=== PATIENT | female | born 1970 | race African-American/Black ===

== ENCOUNTER 2016-10-01 17:14 | Inpatient (IN) | payer OTHER ==
[2016-10-01 18:43] VITALS: BMI 30.2
--- NOTE | 2016-10-01 20:39 | HP ---
Admission ROS [facility] - [facility] Chief Complaint: I WANT TO GO TO REHAB Allergies/Adverse Reactions: Allergies Allergy/AdvReac Type Severity Reaction Status Date / Time No Known Allergies Allergy Verified 10/01/16 21:01 History of Present Illness: 46 YEARS OLD FEMALE WITH LONG HISTORY OF ALCOHOL COCAINE NICOTINE DEPENDENCE HAS HIV DENIES MENTAL ILLNESS IS ADMITTED TO REHAB Exam Limitations: No Limitations - Ebola screening Have you traveled outside of the country in the last 21 days: No Have you had contact with anyone from an Ebola affected area: No Have you been sick,other than usual withdrawal symptoms: No Do you have a fever: No - Review of Systems Constitutional: Weight Stable EENT: reports: Throat Pain Respiratory: reports: Cough Cardiac: reports: No Symptoms Reported GI: reports: No Symptoms Reported : reports: No Symptoms Reported Musculoskeletal: reports: No Symptoms Reported Integumentary: reports: Rash (NECK) Neuro: reports: No Symptoms reported Endocrine: reports: No Symptoms Reported Hematology: reports: No Symptoms Reported Psychiatric: reports: Judgement Intact, Mood/Affect Appropiate, Orientated x3 Other Systems: Reviewed and Negative Patient History - Patient Medical History Hx Anemia: No Hx Asthma: No Hx Chronic Obstructive Pulmonary Disease (COPD): No Hx Cancer: No Hx Cardiac Disorders: No Hx Congestive Heart Failure: No Hx Hypertension: No Hx Hypercholesterolemia: No Hx Pacemaker: No HX Cerebrovascular Accident: No Hx Seizures: No Hx Dementia: No Hx Diabetes: No Hx Gastrointestinal Disorders: No Hx Liver Disease: No Hx Genitourinary Disorders: No Hx Sexually Transmitted Disorders: No Hx Renal Disease (ESRD): No Hx Thyroid Disease: No Hx Human Immunodeficiency Virus (HIV): Yes Hx Hepatitis C: No Hx Depression: No Hx Suicide Attempt: No Hx Bipolar Disorder: No Hx Schizophrenia: No - Patient Surgical History Past Surgical History: No - PPD History Previous Implant?: Yes Documented Results: Negative w/o proof Implanted On Prior [facility] Admission?: No PPD to be Administered?: Yes - Reproductive History Patient is a Female of Child Bearing Age (11 -55 yrs old): No Last Menstrual Period: 10/01/16 Patient : No - Smoking Cessation Smoking history: Current every day smoker Have you smoked in the past 12 months: Yes Aproximately how many cigarettes per day: 10 Cigars Per Day: 0 Hx Chewing Tobacco Use: No Initiated information on smoking cessation: Yes 'Breaking Loose' booklet given: 10/01/16 - Substance & Tx. History Hx Alcohol Use: Yes Hx Substance Use: Yes Substance Use Type: Alcohol, Cocaine Hx Substance Use Treatment: Yes (2014 ) - Substances Abused Alcohol Route: Oral Frequency: 3-6 times per week Amount used: JOHNY WILLOUGHBY Age of first use: 12 Date of Last Use: 10/01/16 Cocaine Route: Smoking Frequency: 1-2 times per week Amount used: 200$ Age of first use: 33 Date of Last Use: 09/28/16 Family Disease History - Family Disease History Family Disease History: CA: Mother (), Other: Mother Admission Physical Exam [facility] - Vital Signs Vital Signs: Vital Signs - 24 hr 10/01/16 18:40 Temperature 97.1 F L Pulse Rate 99 H Respiratory 20 Rate Blood Pressure 134/89 - Physical General Appearance: Yes: No Apparent Distress, Appropriately Dressed, Obese HEENTM: Yes: Hearing grossly Normal, Normal ENT Inspection, Normocephalic, Normal Voice, Muffled/Hoarse Voice, Pharyngeal Erythemia Respiratory: Yes: Chest Non-Tender, Lungs Clear, Normal Breath Sounds, No Respiratory Distress, No Accessory Muscle Use Neck: Yes: Supple, Trachea in good position Breast: Yes: Breasts Symetrical Cardiology: Yes: Regular Rhythm, S1, S2, Tachycardia Abdominal: Yes: Normal Bowel Sounds, Non Tender, Soft Genitourinary: Yes: Within Normal Limits Back: Yes: Normal Inspection Musculoskeletal: Yes: full range of Motion, Gait Steady Extremities: Yes: Normal Inspection, Normal Range of Motion, Non-Tender Neurological: Yes: Fully Oriented, Alert, Motor Strength 5/5, Normal Mood/Affect , Normal Response Integumentary: Yes: Normal Color, Dry, Warm Lymphatic: Yes: Within Normal Limits - Diagnostic (1) Alcohol dependence with uncomplicated withdrawal Current Visit: Yes Status: Acute (2) Cocaine dependence, uncomplicated Current Visit: Yes Status: Chronic (3) Nicotine dependence Current Visit: Yes Status: Acute Qualifiers: Nicotine product type: cigarettes Substance use status: in withdrawal Qualified Code(s): F17.213 - Nicotine dependence, cigarettes, with withdrawal (4) HIV (human immunodeficiency virus infection) Current Visit: Yes Status: Chronic (5) Acneiform rash Current Visit: Yes Status: Acute (6) Sore throat Current Visit: Yes Status: Acute (7) Dry skin dermatitis Current Visit: Yes Status: Chronic Cleared for Admission [facility] - Detox or Rehab [facility] Level of Care: Observation Bed Detox Regimen/Protocol: Not Applicable Claeared for Rehab Admission: Yes [facility] Breath Alcohol Content Breath Alcohol Content: 0.059 Urine Pregancy Test - Result Urine Test Results: Negative- NO Line Present Urine Drug Screen - Results Drug Screen Negative: No Urine Drug Screen Results: SARINA-Cocaine
[2016-10-01] MEDS ORDERED: MAGNESIUM CITRATE 300 ML BOTTLE PO PRN (20:44)
[2016-10-01] MEDS ORDERED: MENTHOL/PHENOL 1 EACH UD MM PRN (20:44)
[2016-10-01] MEDS ORDERED: hydrOXYzine PAMOATE 50 MG CAPSULE (FP) PO PRN (20:44)
[2016-10-01] MEDS ORDERED: MAG HYDROX/AL HYDROX/SIMETH 30 ML UNIT-DOSE CUP PO PRN (20:44)
[2016-10-01] MEDS ORDERED: guaiFENesin/D-METHORPHAN HB 10 ML UNIT-DOSE CUPS PO PRN (20:44)
[2016-10-01] MEDS ORDERED: NICOTINE POLACRILEX 2 MG GUM BC PRN (20:44)
[2016-10-01] MEDS ORDERED: LOPERAMIDE HCL 2 MG CAPSULE PO PRN (20:44)
[2016-10-01] MEDS ORDERED: ACETAMINOPHEN 325 MG TABLET (FP) PO PRN (20:44)
[2016-10-01] MEDS ORDERED: MAGNESIUM HYDROX 2400MG/30ML ORAL SUSPENSION 30 ML CUP PO PRN (20:44)
[2016-10-01] MEDS ORDERED: P-EPHED 60MG/TRIPROLIDI 2.5MG TABLET PO PRN (20:44)
[2016-10-01] MEDS ORDERED: COLLOIDAL OATMEAL 1 BAR EACH TP PRN (20:46)
[2016-10-01] MEDS ORDERED: TUBERCULIN PPD 5 TU/0.1ML VIAL ID ONE (21:48)
[2016-10-01] MEDS: THIAMINE HCL 100 MG TABLET (FP) PO SCH (22:01)
[2016-10-01] MEDS: AMOXICILLIN 500 MG CAPSULE (FP) PO SCH (22:01)
[2016-10-01] MEDS: HYDROCORTISONE 1% TOPICAL CREAM 30 GM TUBE TP SCH (22:03)
[2016-10-01 22:15] LABS: URINE APPEARANCE CLOUDY; URINE BILIRUBIN NEGATIVE (NEGATIVE); URINE BLOOD 3+ (NEGATIVE); URINE COLOR AMBER; URINE GLUCOSE (UA) NEGATIVE (NEGATIVE); URINE KETONE NEGATIVE (NEGATIVE); URINE NITRITE NEGATIVE (NEGATIVE); URINE UROBILINOGEN 4.0 E.U/dl mg/dL (0.2-1.0)
[2016-10-01 22:42] LABS: URINE LEUK ESTERASE 2+ (NEGATIVE); URINE PROTEIN 2+ (NEGATIVE)
[2016-10-01 22:43] LABS: URINE MUCUS MANY; URINE RBC 489 /hpf (0-3); URINE WBC 169 /hpf (3-5)
[2016-10-02] MEDS: AMOXICILLIN 500 MG CAPSULE (FP) PO SCH ×3 (06:19→21:10)
[2016-10-02 10:07] LABS: MCH 27.6 pg (25.7-33.7); MCHC 31.9 g/dl (32.0-36.0); MEAN CELL VOLUME 86.5 fl (80-96); MEAN PLT VOLUME 8.7 fl (7.5-11.1); PLATELET COUNT 193 K/MM3 (134-434); RDW 14.7 % (11.6-15.6); WHITE BLOOD COUNT 4.8 K/mm3 (4.0-10.0)
[2016-10-02] MEDS: NICOTINE 14 MG/24 HOURS TOPICAL PATCH TD SCH (10:16)
[2016-10-02] MEDS: HYDROCORTISONE 1% TOPICAL CREAM 30 GM TUBE TP SCH ×4 (10:16→21:11)
[2016-10-02] MEDS: PRENATAL VITAMINS W/ FOLIC ACID TABLET (FP) PO SCH (10:16)
[2016-10-02 10:50] LABS: ALBUMIN 3.2 g/dl (3.4-5.0); ALK PHOS 97 U/L (45-117); ANION GAP 7 (8-16); BILIRUBIN,TOTAL 0.8 mg/dL (0.2-1.0); CO2 28 mmol/L (21-32); CREATININE 0.6 mg/dL (0.55-1.02); GLUCOSE,RANDOM 109 mg/dL (74-106); SGOT/AST 26 U/L (15-37); SGPT/ALT 38 U/L (12-78); TOT PROT 6.9 g/dl (6.4-8.2)
[2016-10-02] MEDS: THIAMINE HCL 100 MG TABLET (FP) PO SCH (21:09)
[2016-10-03] MEDS: AMOXICILLIN 500 MG CAPSULE (FP) PO SCH ×3 (07:27→21:46)
[2016-10-03] MEDS ORDERED: PT OWN MED DRAWER 7, Y5N ONE ×3 (08:49→20:26)
[2016-10-03] MEDS: PRENATAL VITAMINS W/ FOLIC ACID TABLET (FP) PO SCH (10:00)
[2016-10-03] MEDS: HYDROCORTISONE 1% TOPICAL CREAM 30 GM TUBE TP SCH ×4 (10:01→21:55)
[2016-10-03] MEDS: NICOTINE 14 MG/24 HOURS TOPICAL PATCH TD SCH (10:01)
--- NOTE | 2016-10-03 10:24 | HP ---
Psychiatrist Admission - Data Date of interview: 10/03/16 Admission source: [facility] Identifying data: This is the first admission to [address] [place] [address] for this 46 years old AA single mother of 3 grown children, resides with family,supported by [place]. Medical History: Significant for HIV+,Dry skin dermatitis. Psychiatric History: Patient reports depressed mood,anxiety once in a while.No history of psychiatric treatment except Seroquel 50 mg po hs for sleep while in rehabilitation treatment,no suicidal attempts,no psychiatric admissions. Physical/Sexual Abuse/Trauma History: denies Vital Signs: Vital Signs - 24 hr 10/03/16 10/03/16 10/03/16 00:30 03:30 07:28 Temperature 98.2 F Pulse Rate 67 Respiratory 18 18 18 Rate Blood Pressure 145/84 Allergies/Adverse Reactions: Allergies Allergy/AdvReac Type Severity Reaction Status Date / Time No Known Allergies Allergy Verified 10/01/16 21:01 Date of last physical exam: 10/01/16 Concur with the findings of this exam: Yes - Substance Abuse/Tx History Hx Alcohol Use: Yes (reports drinking since 12 yo,I pint of vodka 3-6 times a week) Hx Substance Use: Yes (cocaine since 33 yo,$200 1-2 times a week) Substance Use Type: Alcohol, Cocaine Hx Substance Use Treatment: Yes (longest abstinence 1,5 years) - Admission Criteria Previous failed treatment: Yes Poor recovery environment: Yes Comorbidities: Yes Lacks judgement: Yes Mental Status Exam - Mental Status Exam Alert and Oriented to: Time, Place, Person Cognitive Function: Grossly Intact Patient Appearance: Well Groomed Mood: Sad Affect: Mood Congruent, Labile Patient Behavior: Cooperative Speech Pattern: Clear Voice Loudness: Normal Thought Process: Goal Oriented Thought Disorder: Not Present Hallucinations: Denies Suicidal Ideation: Denies Homicidal Ideation: Denies Insight/Judgement: Fair Sleep: Fair Appetite: Good Muscle strength/Tone: Normal Gait/Station: Normal Psychiatric Findings - Problem List ([place] 1, 2,3) (1) Nicotine dependence Current Visit: Yes Status: Chronic Qualifiers: Nicotine product type: cigarettes Substance use status: in withdrawal Qualified Code(s): F17.213 - Nicotine dependence, cigarettes, with withdrawal (2) Cocaine dependence, uncomplicated Current Visit: Yes Status: Chronic (3) Dry skin dermatitis Current Visit: Yes Status: Chronic (4) HIV (human immunodeficiency virus infection) Current Visit: Yes Status: Chronic (5) Alcohol dependence Current Visit: Yes Status: Acute (6) Substance induced mood disorder Current Visit: Yes Status: Chronic - Initial Treatment Plan Initial Treatment Plan: Will monitor progress.Consider antidepressnats if needed.
--- NOTE | 2016-10-03 12:58 | EKG ---
Test Reason : Blood Pressure : / mmHG Vent. Rate : 075 BPM Atrial Rate : 075 BPM P-R Int : 172 ms QRS Dur : 084 ms QT Int : 404 ms P-R-T Axes : 061 034 038 degrees QTc Int : 451 ms NORMAL SINUS RHYTHM NORMAL ECG NO PREVIOUS ECGS AVAILABLE Confirmed by LIANE WOLFE MD ([id number]) on 10/03/2016 12:57:58 PM Referred By: Confirmed By:LIANE WOLFE MD
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
[2016-10-03] MEDS ORDERED: SILVER SULFADIAZINE 1% TOP CREAM 50 GM JAR TP ONE (16:15)
[2016-10-03] MEDS: TENOFOVIR DISOPROXIL FUMARATE 300 MG TABLET PO SCH (21:46)
[2016-10-03] MEDS: ATAZANAVIR SO4 300 MG CAPSULE PO SCH (21:46)
[2016-10-03] MEDS: THIAMINE HCL 100 MG TABLET (FP) PO SCH (21:46)
[2016-10-03] MEDS: SILVER SULFADIAZINE 1% TOP CREAM 50 GM JAR TP SCH (21:49)
[2016-10-03] MEDS: diphenhydrAMINE HCL 50 MG CAPSULE PO PRN (21:51)
[2016-10-03] MEDS: ABACAVIR SULFATE 300 MG TABLET PO SCH (22:08)
[2016-10-03] MEDS: RITONAVIR 100 MG TABLET PO SCH (22:10)
[2016-10-04] MEDS: AMOXICILLIN 500 MG CAPSULE (FP) PO SCH ×3 (06:42→21:36)
[2016-10-04] MEDS ORDERED: PT OWN MED DRAWER 7, Y5N ONE (08:34)
[2016-10-04] MEDS: PRENATAL VITAMINS W/ FOLIC ACID TABLET (FP) PO SCH (10:15)
[2016-10-04] MEDS: NICOTINE 14 MG/24 HOURS TOPICAL PATCH TD SCH (10:15)
[2016-10-04] MEDS: HYDROCORTISONE 1% TOPICAL CREAM 30 GM TUBE TP SCH ×4 (10:15→21:39)
[2016-10-04] MEDS: SILVER SULFADIAZINE 1% TOP CREAM 50 GM JAR TP SCH ×2 (10:15→21:40)
[2016-10-04] MEDS: THIAMINE HCL 100 MG TABLET (FP) PO SCH (21:36)
[2016-10-04] MEDS: ATAZANAVIR SO4 300 MG CAPSULE PO SCH (21:36)
[2016-10-04] MEDS: ABACAVIR SULFATE 300 MG TABLET PO SCH (21:37)
[2016-10-04] MEDS: TENOFOVIR DISOPROXIL FUMARATE 300 MG TABLET PO SCH (21:37)
[2016-10-04] MEDS: diphenhydrAMINE HCL 50 MG CAPSULE PO PRN (21:38)
[2016-10-04] MEDS: RITONAVIR 100 MG TABLET PO SCH (21:39)
[2016-10-05] MEDS: AMOXICILLIN 500 MG CAPSULE (FP) PO SCH ×3 (06:48→21:51)
[2016-10-05] MEDS: POTASSIUM CHLORIDE TABS 20 MEQ TABLET.ER (FP) PO SCH ×2 (07:17→21:51)
[2016-10-05] MEDS ORDERED: PT OWN MED DRAWER 7, Y5N ONE (08:49)
[2016-10-05] MEDS: NICOTINE 14 MG/24 HOURS TOPICAL PATCH TD SCH (09:43)
[2016-10-05] MEDS: HYDROCORTISONE 1% TOPICAL CREAM 30 GM TUBE TP SCH ×4 (09:43→21:53)
[2016-10-05] MEDS: SILVER SULFADIAZINE 1% TOP CREAM 50 GM JAR TP SCH ×2 (09:43→21:53)
[2016-10-05] MEDS: PRENATAL VITAMINS W/ FOLIC ACID TABLET (FP) PO SCH (09:43)
[2016-10-05] MEDS: TENOFOVIR DISOPROXIL FUMARATE 300 MG TABLET PO SCH (21:51)
[2016-10-05] MEDS: RITONAVIR 100 MG TABLET PO SCH (21:51)
[2016-10-05] MEDS: ATAZANAVIR SO4 300 MG CAPSULE PO SCH (21:51)
[2016-10-05] MEDS: ABACAVIR SULFATE 300 MG TABLET PO SCH (21:51)
[2016-10-05] MEDS: THIAMINE HCL 100 MG TABLET (FP) PO SCH (21:51)
[2016-10-05] MEDS: diphenhydrAMINE HCL 50 MG CAPSULE PO PRN (21:51)
[2016-10-05] MEDS: IBUPROFEN 400 MG TABLET (FP) PO PRN (23:07)
[2016-10-06] MEDS: AMOXICILLIN 500 MG CAPSULE (FP) PO SCH ×3 (06:37→21:37)
[2016-10-06] MEDS: IBUPROFEN 400 MG TABLET (FP) PO PRN (09:14)
[2016-10-06] MEDS: POTASSIUM CHLORIDE TABS 20 MEQ TABLET.ER (FP) PO SCH ×2 (09:14→21:37)
[2016-10-06] MEDS: PRENATAL VITAMINS W/ FOLIC ACID TABLET (FP) PO SCH (09:14)
[2016-10-06] MEDS: NICOTINE 14 MG/24 HOURS TOPICAL PATCH TD SCH (09:15)
[2016-10-06] MEDS: HYDROCORTISONE 1% TOPICAL CREAM 30 GM TUBE TP SCH ×4 (09:15→21:40)
[2016-10-06] MEDS: SILVER SULFADIAZINE 1% TOP CREAM 50 GM JAR TP SCH ×2 (09:15→21:39)
[2016-10-06] MEDS: THIAMINE HCL 100 MG TABLET (FP) PO SCH (21:38)
[2016-10-06] MEDS: diphenhydrAMINE HCL 50 MG CAPSULE PO PRN (21:39)
[2016-10-06] MEDS: ABACAVIR SULFATE 300 MG TABLET PO SCH (21:40)
[2016-10-06] MEDS: RITONAVIR 100 MG TABLET PO SCH (21:40)
[2016-10-06] MEDS: TENOFOVIR DISOPROXIL FUMARATE 300 MG TABLET PO SCH (21:40)
[2016-10-06] MEDS: ATAZANAVIR SO4 300 MG CAPSULE PO SCH (21:40)
[2016-10-07] MEDS: AMOXICILLIN 500 MG CAPSULE (FP) PO SCH ×3 (06:57→21:29)
[2016-10-07] MEDS: NICOTINE 14 MG/24 HOURS TOPICAL PATCH TD SCH (09:50)
[2016-10-07] MEDS: PRENATAL VITAMINS W/ FOLIC ACID TABLET (FP) PO SCH (09:52)
[2016-10-07] MEDS: POTASSIUM CHLORIDE TABS 20 MEQ TABLET.ER (FP) PO SCH ×2 (09:52→21:30)
[2016-10-07] MEDS: SILVER SULFADIAZINE 1% TOP CREAM 50 GM JAR TP SCH ×2 (09:52→21:31)
[2016-10-07] MEDS: HYDROCORTISONE 1% TOPICAL CREAM 30 GM TUBE TP SCH ×4 (09:52→21:32)
[2016-10-07] MEDS: diphenhydrAMINE HCL 50 MG CAPSULE PO PRN (21:30)
[2016-10-07] MEDS: THIAMINE HCL 100 MG TABLET (FP) PO SCH (21:30)
[2016-10-07] MEDS: ABACAVIR SULFATE 300 MG TABLET PO SCH (21:31)
[2016-10-07] MEDS: TENOFOVIR DISOPROXIL FUMARATE 300 MG TABLET PO SCH (21:31)
[2016-10-07] MEDS: ATAZANAVIR SO4 300 MG CAPSULE PO SCH (21:32)
[2016-10-07] MEDS: RITONAVIR 100 MG TABLET PO SCH (21:32)
[2016-10-08] MEDS: AMOXICILLIN 500 MG CAPSULE (FP) PO SCH ×2 (06:17→13:49)
[2016-10-08] MEDS: SILVER SULFADIAZINE 1% TOP CREAM 50 GM JAR TP SCH ×2 (10:10→21:43)
[2016-10-08] MEDS: NICOTINE 14 MG/24 HOURS TOPICAL PATCH TD SCH (10:10)
[2016-10-08] MEDS: PRENATAL VITAMINS W/ FOLIC ACID TABLET (FP) PO SCH (10:10)
[2016-10-08] MEDS: POTASSIUM CHLORIDE TABS 20 MEQ TABLET.ER (FP) PO SCH ×2 (10:10→21:42)
[2016-10-08] MEDS: HYDROCORTISONE 1% TOPICAL CREAM 30 GM TUBE TP SCH ×4 (10:10→21:43)
[2016-10-08] MEDS ORDERED: PT OWN MED DRAWER 7, Y5N ONE ×2 (10:16→18:27)
--- NOTE | 2016-10-08 12:02 | PN ---
S Progress Note (SOAP) Subjective: patient no longer wants to take her antiretroviral medications Objective: 10/08/16 12:01 Laboratory Tests 10/01/16 10/02/16 10/02/16 21:00 07:00 07:00 WBC 4.8 RBC 4.93 Hgb 13.6 Hct 42.7 MCV 86.5 MCH 27.6 MCHC 31.9 L RDW 14.7 Plt Count 193 MPV 8.7 Sodium 140 Potassium 3.2 L Chloride 105 Carbon Dioxide 28 Anion Gap 7 L BUN 8 Creatinine 0.6 Creat Clearance w eGFR > 60 Random Glucose 109 H Calcium 9.0 Total Bilirubin 0.8 AST 26 ALT 38 Alkaline Phosphatase 97 Total Protein 6.9 Albumin 3.2 L Urine Color Keshia Urine Appearance Cloudy Urine pH 5.0 Ur Specific [place] >= 1.030 H Urine Protein 2+ H Urine Glucose (UA) Negative Urine Ketones Negative Urine Blood 3+ H Urine Nitrite Negative Urine Bilirubin Negative Urine Urobilinogen 4.0 e.u/dl H Ur Leukocyte Esterase 2+ H Urine RBC 489 Urine WBC 169 Ur Epithelial Cells Many Urine Mucus Many RPR Titer 10/02/16 07:00 WBC RBC Hgb Hct MCV MCH MCHC RDW Plt Count MPV Sodium Potassium Chloride Carbon Dioxide Anion Gap BUN Creatinine Creat Clearance w eGFR Random Glucose Calcium Total Bilirubin AST ALT Alkaline Phosphatase Total Protein Albumin Urine Color Urine Appearance Urine pH Ur Specific [place] Urine Protein Urine Glucose (UA) Urine Ketones Urine Blood Urine Nitrite Urine Bilirubin Urine Urobilinogen Ur Leukocyte Esterase Urine RBC Urine WBC Ur Epithelial Cells Urine Mucus RPR Titer Nonreactive labs noted Assessment: 10/08/16 12:01 hypokalemia Plan: counseled need to take antiretroviral medications, supplement K, repeat labs, d/ c current HIV meds, will follow up with HIV PCP when d/c
[2016-10-08] MEDS: IBUPROFEN 400 MG TABLET (FP) PO PRN (13:50)
[2016-10-08 15:33] LABS: URINE APPEARANCE CLOUDY; URINE BILIRUBIN NEGATIVE (NEGATIVE); URINE BLOOD NEGATIVE (NEGATIVE); URINE COLOR DKYELLOW; URINE GLUCOSE (UA) NEGATIVE (NEGATIVE); URINE KETONE NEGATIVE (NEGATIVE); URINE NITRITE NEGATIVE (NEGATIVE); URINE PROTEIN NEGATIVE (NEGATIVE); URINE UROBILINOGEN NEGATIVE mg/dL (0.2-1.0)
[2016-10-08 15:38] LABS: URINE LEUK ESTERASE 3+ (NEGATIVE)
[2016-10-08 15:40] LABS: URINE MUCUS RARE; URINE RBC 8 /hpf (0-3); URINE WBC 33 /hpf (3-5)
[2016-10-08] MEDS: diphenhydrAMINE HCL 50 MG CAPSULE PO PRN (21:42)
[2016-10-08] MEDS: THIAMINE HCL 100 MG TABLET (FP) PO SCH (21:42)
[2016-10-08] MEDS: TENOFOVIR DISOPROXIL FUMARATE 300 MG TABLET PO SCH (21:43)
[2016-10-09] MEDS: POTASSIUM CHLORIDE TABS 20 MEQ TABLET.ER (FP) PO SCH ×3 (10:48→23:38)
[2016-10-09] MEDS: PRENATAL VITAMINS W/ FOLIC ACID TABLET (FP) PO SCH (10:48)
[2016-10-09] MEDS: SILVER SULFADIAZINE 1% TOP CREAM 50 GM JAR TP SCH ×2 (10:49→22:03)
[2016-10-09] MEDS: HYDROCORTISONE 1% TOPICAL CREAM 30 GM TUBE TP SCH ×4 (10:50→22:00)
[2016-10-09] MEDS: NICOTINE 14 MG/24 HOURS TOPICAL PATCH TD SCH (10:50)
[2016-10-09 15:33] LABS: BASOPHIL 0.7 % (0-2.0); EOSINOPHIL 4.8 % (0-4.5); MCH 28.8 pg (25.7-33.7); MCHC 32.7 g/dl (32.0-36.0); MEAN CELL VOLUME 88.1 fl (80-96); MEAN PLT VOLUME 9.3 fl (7.5-11.1); NEUTROPHILS 39.8 % (42.8-82.8); PLATELET COUNT 240 K/MM3 (134-434); WHITE BLOOD COUNT 5.9 K/mm3 (4.0-10.0)
[2016-10-09 16:02] LABS: ANION GAP 8 (8-16); CALCIUM 9.2 mg/dL (8.5-10.1); CO2 25 mmol/L (21-32); CREATININE 0.6 mg/dL (0.55-1.02); GLUCOSE,RANDOM 123 mg/dL (74-106)
[2016-10-09 21:16] LABS: PLATELET COMMENT2 RARE GIANT PLTS; PLATELET ESTIMATE ADEQUATE (NORMAL)
[2016-10-09] MEDS ORDERED: PT OWN MED DRAWER 7, Y5N ONE (22:02)
[2016-10-09] MEDS: THIAMINE HCL 100 MG TABLET (FP) PO SCH ×2 (22:03→23:37)
[2016-10-09] MEDS: TENOFOVIR DISOPROXIL FUMARATE 300 MG TABLET PO SCH (22:04)
[2016-10-09] MEDS: diphenhydrAMINE HCL 50 MG CAPSULE PO PRN (22:06)
[2016-10-09] MEDS ORDERED: THIAMINE HCL 100 MG TABLET (FP) PO SCH (23:30)
[2016-10-10] MEDS ORDERED: ACETAMINOPHEN 325 MG TABLET (FP) PO PRN (08:56)
[2016-10-10] MEDS ORDERED: guaiFENesin/D-METHORPHAN HB 10 ML UNIT-DOSE CUPS PO PRN (08:57)
[2016-10-10] MEDS ORDERED: hydrOXYzine PAMOATE 50 MG CAPSULE (FP) PO PRN (08:57)
[2016-10-10] MEDS ORDERED: P-EPHED 60MG/TRIPROLIDI 2.5MG TABLET PO PRN (08:57)
[2016-10-10] MEDS ORDERED: IBUPROFEN 400 MG TABLET (FP) PO PRN (08:57)
[2016-10-10] MEDS ORDERED: COLLOIDAL OATMEAL 1 BAR EACH TP PRN (08:57)
[2016-10-10] MEDS ORDERED: MAGNESIUM HYDROX 2400MG/30ML ORAL SUSPENSION 30 ML CUP PO PRN (08:58)
[2016-10-10] MEDS ORDERED: MENTHOL/PHENOL 1 EACH UD MM PRN (08:58)
[2016-10-10] MEDS ORDERED: MAGNESIUM CITRATE 300 ML BOTTLE PO PRN (08:58)
[2016-10-10] MEDS ORDERED: MAG HYDROX/AL HYDROX/SIMETH 30 ML UNIT-DOSE CUP PO PRN (08:58)
[2016-10-10] MEDS ORDERED: LOPERAMIDE HCL 2 MG CAPSULE PO PRN (08:58)
[2016-10-10] MEDS ORDERED: NICOTINE POLACRILEX 2 MG GUM BUC PRN (08:59)
[2016-10-10] MEDS: SILVER SULFADIAZINE 1% TOP CREAM 50 GM JAR TP SCH ×2 (10:00→21:57)
[2016-10-10] MEDS: PRENATAL VITAMINS W/ FOLIC ACID TABLET (FP) PO SCH (10:38)
[2016-10-10] MEDS: POTASSIUM CHLORIDE TABS 20 MEQ TABLET.ER (FP) PO SCH ×2 (10:38→21:55)
[2016-10-10] MEDS: HYDROCORTISONE 1% TOPICAL CREAM 30 GM TUBE TP SCH ×4 (10:39→21:54)
[2016-10-10] MEDS: NICOTINE 14 MG/24 HOURS TOPICAL PATCH TD SCH (10:39)
[2016-10-10] MEDS: THIAMINE HCL 100 MG TABLET (FP) PO SCH (21:55)
[2016-10-10] MEDS: diphenhydrAMINE HCL 50 MG CAPSULE PO PRN (21:55)
[2016-10-10] MEDS: TENOFOVIR DISOPROXIL FUMARATE 300 MG TABLET PO SCH (21:55)
[2016-10-11] MEDS: PRENATAL VITAMINS W/ FOLIC ACID TABLET (FP) PO SCH (10:15)
[2016-10-11] MEDS: NICOTINE 14 MG/24 HOURS TOPICAL PATCH TD SCH (10:15)
[2016-10-11] MEDS: HYDROCORTISONE 1% TOPICAL CREAM 30 GM TUBE TP SCH ×4 (10:16→21:45)
[2016-10-11] MEDS: SILVER SULFADIAZINE 1% TOP CREAM 50 GM JAR TP SCH ×2 (10:16→21:45)
[2016-10-11] MEDS: POTASSIUM CHLORIDE TABS 20 MEQ TABLET.ER (FP) PO SCH (10:16)
[2016-10-11] MEDS: TENOFOVIR DISOPROXIL FUMARATE 300 MG TABLET PO SCH (21:45)
[2016-10-11] MEDS: THIAMINE HCL 100 MG TABLET (FP) PO SCH (21:45)
[2016-10-11] MEDS: diphenhydrAMINE HCL 50 MG CAPSULE PO PRN (21:45)
[2016-10-12] MEDS ORDERED: PT OWN MED DRAWER 7, Y5N ONE ×4 (09:07→22:28)
[2016-10-12] MEDS: SILVER SULFADIAZINE 1% TOP CREAM 50 GM JAR TP SCH ×2 (09:49→22:03)
[2016-10-12] MEDS: NICOTINE 14 MG/24 HOURS TOPICAL PATCH TD SCH (09:49)
[2016-10-12] MEDS: PRENATAL VITAMINS W/ FOLIC ACID TABLET (FP) PO SCH (09:49)
[2016-10-12] MEDS: HYDROCORTISONE 1% TOPICAL CREAM 30 GM TUBE TP SCH ×4 (09:49→22:04)
[2016-10-12] MEDS: diphenhydrAMINE HCL 50 MG CAPSULE PO PRN (22:02)
[2016-10-12] MEDS: THIAMINE HCL 100 MG TABLET (FP) PO SCH (22:02)
[2016-10-12] MEDS: TENOFOVIR DISOPROXIL FUMARATE 300 MG TABLET PO SCH (22:03)
[2016-10-13] MEDS: SILVER SULFADIAZINE 1% TOP CREAM 50 GM JAR TP SCH ×2 (10:18→21:58)
[2016-10-13] MEDS: PRENATAL VITAMINS W/ FOLIC ACID TABLET (FP) PO SCH (10:18)
[2016-10-13] MEDS: NICOTINE 14 MG/24 HOURS TOPICAL PATCH TD SCH (10:19)
[2016-10-13] MEDS: HYDROCORTISONE 1% TOPICAL CREAM 30 GM TUBE TP SCH ×4 (10:19→21:58)
[2016-10-13] MEDS: TENOFOVIR DISOPROXIL FUMARATE 300 MG TABLET PO SCH (21:58)
[2016-10-13] MEDS: THIAMINE HCL 100 MG TABLET (FP) PO SCH (21:58)
[2016-10-13] MEDS: diphenhydrAMINE HCL 50 MG CAPSULE PO PRN (21:58)
[2016-10-13] MEDS ORDERED: PT OWN MED DRAWER 7, Y5N ONE (22:14)
[2016-10-14] MEDS ORDERED: PT OWN MED DRAWER 7, Y5N ONE (08:38)
[2016-10-14] MEDS: HYDROCORTISONE 1% TOPICAL CREAM 30 GM TUBE TP SCH ×4 (10:29→21:41)
[2016-10-14] MEDS: PRENATAL VITAMINS W/ FOLIC ACID TABLET (FP) PO SCH (10:29)
[2016-10-14] MEDS: SILVER SULFADIAZINE 1% TOP CREAM 50 GM JAR TP SCH ×2 (10:29→21:41)
[2016-10-14] MEDS: NICOTINE 14 MG/24 HOURS TOPICAL PATCH TD SCH (10:29)
[2016-10-14] MEDS: diphenhydrAMINE HCL 50 MG CAPSULE PO PRN (21:40)
[2016-10-14] MEDS: THIAMINE HCL 100 MG TABLET (FP) PO SCH (21:40)
[2016-10-14] MEDS: TENOFOVIR DISOPROXIL FUMARATE 300 MG TABLET PO SCH (21:41)
[2016-10-15] MEDS: PRENATAL VITAMINS W/ FOLIC ACID TABLET (FP) PO SCH (10:13)
[2016-10-15] MEDS: SILVER SULFADIAZINE 1% TOP CREAM 50 GM JAR TP SCH ×2 (10:14→21:40)
[2016-10-15] MEDS: NICOTINE 14 MG/24 HOURS TOPICAL PATCH TD SCH (10:14)
[2016-10-15] MEDS: HYDROCORTISONE 1% TOPICAL CREAM 30 GM TUBE TP SCH ×4 (10:14→21:41)
--- NOTE | 2016-10-15 13:50 | PN ---
Psychiatric Progress Note Vital Signs: Vital Signs Period Temp Pulse Resp BP Sys/Ramsay Pulse Ox Last 24 Hr 98.3 F 72 18-18 109/77 Date of Session: 10/15/16 Chief Complaint:: Discharge visit HPI: Cocaine,alcohol dependence comorbid with Substance induced mood disorder. ROS: Significant for HIV+. Current Medications: Active Medications Generic Name Dose Route Start Last Admin Trade Name Freq PRN Reason Stop Dose Admin Acetaminophen 650 mg 10/10/16 08:56 Tylenol - PO Q4H PRN PAIN Al Hydroxide/Mg Hydroxide 30 ml 10/10/16 08:58 Mylanta Oral Suspension - PO Q6H PRN DYSPEPSIA Colloidal Oatmeal 1 applic 10/10/16 08:57 Aveeno Soap - TP DAILY PRN HYGEINE Diphenhydramine HCl 50 mg 10/10/16 08:57 10/14/16 21:40 Benadryl - PO 50 mg HSMR1 PRN Administration INSOMNIA Eucalyptus/Menthol/Phenol/Sorbitol 1 each 10/10/16 08:58 Cepastat Lozenge - MM Q4H PRN SORE THROAT Guaifenesin 10 ml 10/10/16 08:57 Robitussin Dm - PO Q6H PRN COUGH Hydrocortisone 1 applic 10/10/16 10:00 10/15/16 13:16 Hytone 1% Cream - TP Not Given QID ARTURO Hydroxyzine Pamoate 50 mg 10/10/16 08:57 Vistaril - PO Q4H PRN AGITATION Ibuprofen 400 mg 10/10/16 08:57 Motrin - PO Q6H PRN SEVERE PAIN Loperamide HCl 4 mg 10/10/16 08:58 Imodium - PO Q6H PRN DIARRHEA Magnesium Citrate 300 ml 10/10/16 08:58 Citroma - PO Q48H PRN CONSTIPATION Magnesium Hydroxide 30 ml 10/10/16 08:58 Milk Of Magnesia - PO DAILY PRN CONSTIPATION Nicotine 14 mg 10/10/16 10:00 10/15/16 10:14 Nicoderm Patch - TD Not Given DAILY ARTURO Nicotine Polacrilex 2 mg 10/10/16 08:59 10/13/16 14:49 Nicorette Gum - BUC 2 mg Q2H PRN Administration NICOTINE REPLACEMENT RX Multivit/Folic Acid/Iron 1 tab 10/10/16 10:00 10/15/16 10:13 Vitamins ([facility]) - PO 1 tab DAILY ARTURO Administration Pseudoephedrine/Triprolidine 1 combo 10/10/16 08:57 Actifed - PO TID PRN NASAL CONGESTION Silver Sulfadiazine 1 applic 10/10/16 10:00 10/15/16 10:14 Silvadene - TP Not Given BID ARTURO Tenofovir Disoproxil Fumarate 300 mg 10/10/16 22:00 10/14/16 21:41 Viread - PO Not Given HS ARTURO Thiamine HCl 100 mg 10/09/16 23:30 10/14/16 21:40 Vitamin B1 - PO 100 mg HS ARTURO Administration Current Side Effect: No Lab tests ordered: No Lab tests reviewed: Yes Provider note:: Patient will complete this program tomorrow 10/16/16.She has met her treatment goals and will continue to address her issues on outpatient basis at [facility].Patient reports finding current management helpful to cope with mood instability,anxiety.She will continue to take Vistaril as needed. Supportive therapy provided.Coping skills,support utilization has been discussed with the patient to maintain recovery. patient is stable for discharge tomorrow. Total face to face time:: 25 Mental Status Exam - Mental Status Exam Alert and Oriented to: Time, Place, Person Cognitive Function: Grossly Intact Patient Appearance: Well Groomed Mood: Euthymic Affect: Mood Congruent Patient Behavior: Cooperative Speech Pattern: Clear Voice Loudness: Normal Thought Process: Goal Oriented Thought Disorder: Not Present Hallucinations: Denies Suicidal Ideation: Denies Homicidal Ideation: Denies Insight/Judgement: Fair Sleep: Fair Appetite: Good Muscle strength/Tone: Normal Gait/Station: Normal Psychiatric Treatment Plan - Problem List (1) Nicotine dependence Qualifiers: Nicotine product type: cigarettes Substance use status: in withdrawal Qualified Code(s): F17.213 - Nicotine dependence, cigarettes, with withdrawal
[2016-10-15] MEDS ORDERED: PT OWN MED DRAWER 7, Y5N ONE ×2 (17:26→20:24)
[2016-10-15] MEDS: THIAMINE HCL 100 MG TABLET (FP) PO SCH (21:39)
[2016-10-15] MEDS: TENOFOVIR DISOPROXIL FUMARATE 300 MG TABLET PO SCH (21:40)
[2016-10-15] MEDS: diphenhydrAMINE HCL 50 MG CAPSULE PO PRN (21:40)
[2016-10-16 06:56] VITALS: BP 111/74; PULSE 73; TEMP 98.5
[2016-10-16] MEDS ORDERED: PT OWN MED DRAWER 7, Y5N ONE (08:37)
== END 2016-10-16 08:40 | disposition home or self-care (01) | DRG 772 ==
LOC: YASAS 17:14 → Y3E 21:03 → UNDODISIN 10-09 10:10 → Y3E 10-15 10:16
PROVIDERS: ADMIT Psychiatry & Neurology Psychiatry; ATTEND Psychiatry & Neurology Psychiatry
PROC: HZ42ZZZ Group Counseling for Substance Abuse Treatment, Cognitive-Behavioral (ICD-10-PCS; principal; 2016-10-01)
PROC: 2W2NX4Z Dressing of Right Upper Leg using Bandage (ICD-10-PCS; 2016-10-03)
DX: F10.20 Alcohol dependence, uncomplicated (principal); F14.20 Cocaine dependence, uncomplicated; F17.213 Nicotine dependence, cigarettes, with withdrawal; F19.24 Other psychoactive substance dependence with psychoactive substance-induced mood disorder; L85.3 Xerosis cutis; Z21 Asymptomatic human immunodeficiency virus [HIV] infection status; E87.6 Hypokalemia; L72.0 Epidermal cyst; J02.9 Acute pharyngitis, unspecified; E66.9 Obesity, unspecified; Z68.30 Body mass index [BMI] 30.0-30.9, adult; T24.011A Burn of unspecified degree of right thigh, initial encounter; T31.0 Burns involving less than 10% of body surface
CPT/HCPCS: 36415; 80048; 80053; 81003; 81015; 85025; 85027; 86593; 93005; 93010